=== PATIENT | female | born 1955 | race African-American/Black ===

== ENCOUNTER 2017-06-16 11:16 | Day surgery (SDC) | payer OTHER ==
[2017-06-13 12:46] VITALS: BMI 31.0
[2017-06-16] MEDS ORDERED: LEVOFLOXACIN 500 MG PREMIX BAG IVPB ONE (12:32)
[2017-06-16] MEDS ORDERED: MIDAZOLAM HCL 2 MG/2 ML SINGLE DOSE VIAL ONE (12:40)
[2017-06-16] MEDS ORDERED: ONDANSETRON 4 MG/2 ML VIAL IVPUSH PRN (12:45)
[2017-06-16] MEDS ORDERED: oxyCODONE HCL 5 MG TABLET PO PRN (12:45)
[2017-06-16] MEDS ORDERED: LACTATED RINGERS SOLUTION 1,000 ML IV SCH (12:45)
[2017-06-16 13:23] VITALS: TEMP 98
--- NOTE | 2017-06-16 14:41 | OP ---
Operative Note - Note: Operative Date: 06/16/17 Pre-Operative Diagnosis: left renal stone Operation: left eswl Findings: 7 mm left lower pole stone Post-Operative Diagnosis: Same as Pre-op Surgeon: Gaudencio Moran Anesthesia: General, Fractional
[2017-06-16 15:24] VITALS: BP 139/78; PULSE 54
--- NOTE | 2017-06-17 10:19 | OP ---
DATE OF OPERATION: 06/16/2017 PREOPERATIVE DIAGNOSIS: Left renal stone. POSTOPERATIVE DIAGNOSIS: Left renal stone. PROCEDURE: Left extracorporeal shock wave lithotripsy. ATTENDING: Dwight Chau MD ANESTHESIA: Fractional. DESCRIPTION OF OPERATION: The patient was brought in the operating room, placed in supine position on the operating room table. Ultrasonography and fluoroscopy were performed. A 7-mm left lower pole stone was identified. Anesthesia was administered at this point, as well as preoperative antibiotics. The patient had extracorporeal shock wave lithotripsy then administered; 2500 impulses at 17 joules of power were administered to the stone with excellent fragmentation noted. No complications were noted. The disposition of the patient was to the recovery room. DWIGHT CHAU M.D. [id number]
== END 2017-06-16 15:05 | disposition home or self-care (01) ==
LOC: JASU-SURG 11:16
PROVIDERS: ATTEND Urology
PROC: 0TF4XZZ Fragmentation in Left Kidney Pelvis, External Approach (ICD-10-PCS; principal; 2017-06-16 12:30)
DX: N20.0 Calculus of kidney (principal)
CPT/HCPCS: 94760